=== PATIENT | male | born 1970 | race Caucasian/White ===

== ENCOUNTER 2017-06-28 09:35 | Emergency (ER) | payer OTHER, BC ==
[2017-06-28] MEDS ORDERED: Morphine 2 MG/ML Syringe IVPUSH ONE (09:41)
[2017-06-28] MEDS ORDERED: Sodium Chloride 0.9% 1,000 ML IV ONE (09:41)
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
[2017-06-28 10:27] LABS: CHLORIDE,CL 108 mmol/L (98-110); SODIUM,NA 138 mmol/L (136-146)
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
[2017-06-28] MEDS ORDERED: Lidocaine 1% 20 ML MDV ONE (11:18)
[2017-06-28] MEDS ORDERED: Lidocaine 1% 20 ML MDV INJECT ONE (11:20)
[2017-06-28] MEDS ORDERED: Ketorolac 30 MG/ML SDV IVPUSH ONE (11:34)
[2017-06-28] MEDS ORDERED: Bacitracin Oint 1 GM U/D Packet ONE (12:21)
[2017-06-28] MEDS ORDERED: Bacitracin Oint 1 GM U/D Packet TOP ONE (12:21)
[2017-06-28 12:22] VITALS: BP 147/89
== END 2017-06-28 12:20 | disposition home or self-care (01) ==
LOC: MW.ED 09:35
DX: S02.2XXA Fracture of nasal bones, initial encounter for closed fracture (principal); S61.212A Laceration without foreign body of right middle finger without damage to nail, initial encounter; J34.2 Deviated nasal septum; V49.69XA Unspecified car occupant injured in collision with other motor vehicles in traffic accident, initial encounter
CPT/HCPCS: 12001; 36415; 70450; 70486; 72040; 80053; 85025; 96361; 96374; 96375; 99285; J1885; J2270; J7040; 99283